=== PATIENT | female | born 1965 | race Caucasian/White ===

== ENCOUNTER 2023-01-09 12:11 | Outpatient (CLI) | payer BC, SELFPAY ==
--- NOTE | 2023-01-09 11:30 | DI.RAD_ITS ---
Exam(s) XR CHEST 2V PA LATERAL EXAM: XR CHEST 2V PA LATERAL CLINICAL HISTORY: HUMARIA, J06.09, evaluate pathology TECHNIQUE: 2D digital imaging was performed of the chest. Two images were obtained. PA and lateral views were obtained. COMPARISON: No exams were available for comparison FINDINGS: MEDIASTINUM: Normal. HEART: Normal. PULMONARY VASCULATURE: Normal. LUNGS: Clear. PLEURAL SPACE: No pleural effusion or pneumothorax. BONE:Within normal limits for the patient's age. OTHER FINDINGS:Normal. IMPRESSION: No acute pulmonary findings. DATA REPOSITORY: RADIATION DOSE DELIVERED:
== END 2023-01-09 12:31 ==
LOC: DI 12:14
PROVIDERS: PCP Physician Assistant Medical; Visit Provider Nurse Practitioner Family
DX: J06.9 Acute upper respiratory infection, unspecified (principal)
CPT/HCPCS: 71046

== ENCOUNTER 2023-01-09 12:17 | Outpatient (CLI) | payer BC, SELFPAY ==
[2023-01-09 12:17] LABS: Abs Immature Grans 0.02 10^3/uL (0.0-0.06); Absolute Basophil Count 0.03 10^3/uL (0.0-0.2); Absolute Lymphocyte Count 2.29 10^3/uL (1.2-3.4); Absolute Monocyte Count 0.59 10^3/uL (0.1-0.8); Absolute Neutrophil Count 2.22 10^3/uL (1.2-6.7); Basophils % 0.5; Eosinophils % 7.2; HCT 41.7 % (36.0-46.0); HGB 13.5 g/dL (11.2-15.7); Immature Grans % 0.4; Lymphocytes % 41.3; MCH 27.7 pg (27.0-33.0); MCHC 32.4 % (32.0-36.0); MCV 86 fL (80-95); MPV 9.4 fL (8.0-11.0); Monocytes % 10.6; Platelet Count 242 10^3/uL (130-400); RBC 4.88 10^6/uL (3.93-5.22); RDW 12.8 % (11.7-14.6); RDW-SD 40.3 fL; WBC 5.55 10^3/uL (4.4-10.8)
[2023-01-09 13:01] LABS: D-Dimer 722 ng/mlFEU (<500)
== END 2023-01-09 12:18 | disposition home or self-care (01) ==
LOC: LBO 12:18
PROVIDERS: PCP Physician Assistant Medical; Visit Provider Nurse Practitioner Family
DX: J06.9 Acute upper respiratory infection, unspecified (principal); R05.8 Other specified cough; R06.02 Shortness of breath; Z86.16 Personal history of COVID-19
CPT/HCPCS: 36415; 85025; 85379

== ENCOUNTER 2023-01-09 16:20 | Emergency (ER) | payer BC, SELFPAY ==
[2023-01-09 16:29] VITALS: BP 142/82; PULSE 80; RESP 17; TEMP 36.4; O2SAT 100
--- NOTE | 2023-01-09 16:45 | DI.CT_ITS ---
Exam(s) CT CHEST PE CTA EXAM: CT CHEST PE CTA CLINICAL HISTORY: F5 leiden, elevated dimer,cough, sob, r/o clot. TECHNIQUE: Imaging Protocol: Axial CT angiography was performed with multi-slice acquisition and mu lti-planar and/or 3D reconstructions. CONTRAST MATERIAL: Intravenous: Omnipaque 350 contrast volume:3 mL COMPARISON: No exams were available for comparison FINDINGS: Tracheobronchial tree: Patent where visualized. Pulmonary parenchyma: No consolidation or dominant measurable mass. No architectural distortion. Pulmonary Arteries: No evidence of filling defect to suggest pulmonary emboli. Mediastinum and Fauzia: No dominant adenopathy or fluid collection. The esophagus is unremarkable. Visualized thyroid gland: Unremarkable. Pleura: No effusion or pneumothorax. Heart: The heart is not dilated. No coronary artery calcifications are seen. No pericardial effusion. Aorta: Thoracic aorta non-dilated. No definite evidence of a dissection. Upper abdomen: Unremarkable. Soft tissues: Unremarkable. Bones: Within normal limits for the patient's age. IMPRESSION: No evidence of pulmonary embolism, thoracic aortic dissection or aneurysm. RADIATION DOSE DELIVERED: 489.56mGy.cm Total DLP DATA REPOSITORY: All CT scans at this facility are submitted to the National Radiology Data Registry (NRDR) Dose Index Registry (DIR) with the [employer] (ACR). RADIATION OPTIMIZATION: All CT scans at this facility use at least one of these dose optimization te chniques: automated exposure control; mA and/or kV adjustment per patient size (includes targeted exa ms where dose is matched to clinical indication); or iterative reconstruction.
--- NOTE | 2023-01-09 16:45 | RT.EKG_ITS ---
APPROVED REPORT Exam: Resting ECG Reason for Exam: chest pain Patient Location: E HR:71 bpm ECG Measurements Heart Rate 71 AXIS AZ 171 P 30 QRSd 91 QRS -28 QT 414 T 32 QTc 451 Conclusion Sinus rhythm...normal P axis, V-rate 60- 99 Physician: no stemi, no prior for comparison. inverted t wave in V1, minimal less than 1mm elevation in V2, inverted T in III
[2023-01-09 17:06] LABS: Abs Immature Grans 0.01 10^3/uL (0.0-0.06); Absolute Basophil Count 0.05 10^3/uL (0.0-0.2); Absolute Eosinophil Count 0.37 10^3/uL (0.0-0.7); Absolute Lymphocyte Count 2.47 10^3/uL (1.2-3.4); Absolute Monocyte Count 0.67 10^3/uL (0.1-0.8); Absolute Neutrophil Count 2.77 10^3/uL (1.2-6.7); Basophils % 0.8; Eosinophils % 5.8; HCT 40.1 % (36.0-46.0); HGB 12.9 g/dL (11.2-15.7); Immature Grans % 0.2; MCH 27.7 pg (27.0-33.0); MCHC 32.2 % (32.0-36.0); MCV 86 fL (80-95); MPV 9.5 fL (8.0-11.0); Monocytes % 10.6; Neutrophils % 43.6; Platelet Count 238 10^3/uL (130-400); RBC 4.66 10^6/uL (3.93-5.22); RDW 12.9 % (11.7-14.6); WBC 6.34 10^3/uL (4.4-10.8)
--- NOTE | 2023-01-09 17:14 | ED.GENADUL_ITS ---
Discharge Plan Disposition Patient Disposition: Home Condition: Good Discharge Details Clinical Impression: Cough, Encounter for medical assessment Primary Care Provider: Nellie Bee ED Provider: Delta Ingram Home Meds and New Rx's Prescriptions: New budesonide-formoterol [Symbicort] 160-4.5 mcg/actuation HFA aerosol inhaler 2 puff inhalation BID Qty: 10.2 0RF Continued albuterol sulfate 90 mcg/actuation HFA aerosol inhaler 2 puff inhalation Q6H PRN (Reason: shortness of breath or wheezing) Qty: 6.7 0RF (DME) Aerochamber MV Spacer See Rx Instructions .Route Qty: 1 0RF Rx Instructions: As directed benzonatate 100 mg capsule 100 mg PO TID PRN (Reason: cough) 7 Days Qty: 20 0RF levothyroxine [Synthroid] 137 MCG tablet 137 mcg PO DAILY aspirin 325 MG tablet 650 mg PO BID Discharge Instructions Instructions: Acute Cough (ED) Additional Instructions: At this time thankfully your blood work is normal, your troponin, CT scan, and laboratory work-up shows no signs of significant abnormality, blood clot, or pneumonia. I suspect your persistent cough is secondary to a post-COVID component. Please take the albuterol inhaler, 2 puffs every 6 hours as needed for the next 2 to 3 days. Continue to take the Tessalon Perles as needed. If you notice no improvement with your symptoms over the next 48 to 72 hours please switch from using the albuterol, to the Symbicort inhaler that I prescribed and sent to your pharmacy. Use this and take 2 puffs every 12 hours. If you notice any worsening of your symptoms, or any new symptoms such as vomiting, diarrhea, fever, chills, shortness of breath, chest pain, numbness, weakness, or fainting , please return immediately to the emergency department for reeva luation. Please follow up with your primary care provider as soon as possible for reassessment and reevaluation. As always, it was a pleasure participating in your medical care today. Referrals: Nellie Bee [Primary Care Provider] - Medical Decision Making 57-year-old female with a past medical history of factor V Leiden deficiency, who presents today for evaluation of mild shortness of breath and cough and congestion. Patient states that in late November which was about a month ago she and her significant other came down with COVID. They have recovered from that without significant issue, however over the last 2 to 3 days they have had mild symptoms of cough, congestion, and mild shortness of breath. She admits to pain with coughing, and a minimal amount of pain in her chest when she takes deep breath. She denies any exertional chest pain. She denies any history of personal blood clots but her brother who has factor V Leiden deficiency does have a history of blood clots. She does not smoke. She denies any estrogen use. She denies any recent long trips surgeries or procedures. For the last few days she has been taking 4 baby aspirin daily. No other complaints at this time. No hemoptysis, vomiting, dizziness, numbness, tingling, or weakness. No pain in her calves. Physical exam demonstrates a well-appearing female, no tachycardia, fever, or other abnormalities. Lungs are clear. Patient was at the urgent care earlier today, COVID and flu was negative, she did have a dimer that was performed and this was noted to be positive at 700. She was sent here for further assessment. We will get a CTA, evaluate for cardiac etiology, monitor closely and reassess. EKG does show minimal less than a millimeter elevation in V1 V2, does not meet STEMI criteria and. No significant depression. We will get a proBNP to evaluate for signs of heart strain. 6:45 PM Laboratory work-up has returned, no white count bandemia or left shift, electrolytes stable, renal function appropriate, troponin normal, proBNP normal showing no signs of heart strain. CT is negative for acute process per virtual radiology, including no evidence of pulmonary embolism. At this time patient remains well. No signs of vital sign abnormality, no signs of respiratory distress. No evidence of pneumonia or lungs. I suspect the cough may be secondary to a post COVID component. She does have an albuterol inhaler, recommend continued use of this as well as her Tessalon Perles. Patient otherwise stable for discharge. Symptoms inconsistent with ACS, massive PE, dissection, or pneumonia. Discussed red flags for which to return. Patient stable for discharge. I have extensively reviewed the treatment plan and discharge instructions with the patient and their family. I have addressed all patient concerns at this time. The patient and family was made aware of what symptoms to monitor for that would warrant a return to the emergency department. Discussed the plan with the patient and family, they demonstrate verbal understanding and agreement with our assessment and plan at this time. The documentation in this chart was dictated using Section 101 dictation software. Please excuse any dictation errors. FINDINGS: Pulmonary arteries: No pulmonary emboli. Aorta: No aortic aneurysm. No aortic dissection. Lungs: Scattered microatelectasis. No airspace consolidation. Pleural spaces: No pneumothorax. No pleural effusion. Heart: No cardiomegaly. No pericardial effusion. Lymph nodes: No enlarged lymph nodes. Bones/joints: No acute fracture. Soft tissues: No suspicious lesions. IMPRESSION: No pulmonary emboli are seen. Thank you for allowing us to participate in the care of your patient. Dictated and Authenticated by: Paulette Strong MD 01/09/2023 6:37 PM Eastern Time ([place] & [place]) HPI General Date/Time Provider Initiated Documentation: 01/09/23 16:47 . HPI Narrative: 57-year-old female with a past medical history of factor V Leiden deficiency, who presents today for evaluation of mild shortness of breath and cough and congestion. Patient states that in late November which was about a month ago she and her significant other came down with COVID. They have recove red from that without significant issue, however over the last 2 to 3 days they have had mild symptoms of cough, congestion, and mild shortness of breath. She admits to pain with coughing, and a minimal amount of pain in her chest when she takes deep breath. She denies any exertional chest pain. She denies any history of personal blood clots but her brother who has factor V Leiden deficiency does have a history of blood clots. She does not smoke. She denies any estrogen use. She denies any recent long trips surgeries or procedures. For the last few days she has been taking 4 baby aspirin daily. No other complaints at this time. No hemoptysis, vomiting, dizziness, numbness, tingling, or weakness. No pain in her calves. Related Data Home Medications Medication Instructions Recorded Confirmed aspirin 325 mg tablet 650 mg PO BID 02/21/18 01/09/23 levothyroxine 137 mcg tablet 137 mcg PO DAILY 02/21/18 01/09/23 (Synthroid) albuterol sulfate 90 mcg/actuation 2 puff inhalation Q6H PRN 01/09/23 01/09/23 aerosol inhaler shortness of breath or wheezing #6.7 grams benzonatate 100 mg capsule 100 mg PO TID PRN cough 7 days #20 01/09/23 01/09/23 caps budesonide-formoterol HFA 160 2 puff inhalation BID #10.2 grams 01/09/23 mcg-4.5 mcg/actuation aerosol inhaler (Symbicort) inhalational spacing device #1 ea 01/09/23 01/09/23 (Aerochamber MV spacer) Previous Rx's Medication Instructions Recorded albuterol sulfate 90 mcg/actuation 2 puff inhalation Q6H PRN 01/09/23 aerosol inhaler shortness of breath or wheezing #6.7 grams benzonatate 100 mg capsule 100 mg PO TID PRN cough 7 days #20 01/09/23 caps budesonide-formoterol HFA 160 2 puff inhalation BID #10.2 grams 01/09/23 mcg-4.5 mcg/actuation aerosol inhaler (Symbicort) inhalational spacing device #1 ea 01/09/23 (Aerochamber MV spacer) Allergies Allergy/AdvReac Type Severity Reaction Status Date / Time morphine Allergy Unknown Unverified 01/09/23 16:34 General Stated Complaint: Recheck PRINCE: 4 Review of Systems All systems reviewed & are unremarkable except as noted in HPI and below PFSH All Active Problems (Updated 01/09/23 @ 18:48 by Delta Ingram DO) Cough (Acute) Encounter for medical assessment (Acute) Lumbar radicular pain (Chronic) Medical History Afib Factor 5 Leiden mutation, heterozygous Fatigue GERD (gastroesophageal reflux disease) Protein S deficiency Sciatica Surgical History Replacement of total knee joint bilat Family History Mother Factor 5 Leiden mutation, heterozygous Father Myeloid dysplasia Social History Smoking/Tobacco Use Status: Never Smoking risk assessment performed?: Yes Alcohol Intake: current Alcohol Intake frequency: holidays/special occasions only Drug use: Occasionally Substance use type: does not use Do you feel safe at home: Yes Do you feel safe in your relationship?: Yes Exam Narrative Exam Narrative: 1.Const: Well-nourished, Well-developed, appearing stated age 2.Eyes: PERRL, no conjunctival injection, and symmetrical lids. 3.ENT: Atraumatic external nose and ears. Moist MM. Neck: Symmetric, trachea midline, No thyromegaly. 4.CVS: +S1/S2, No murmurs or gallops. Peripheral pulses 2+ and equal in all extremities. Brisk capillary refill in all extremities. 5.RESP: Unlabored respiratory effort. Clear to auscultation bilaterally. No wheezes rales or rhonchi 6.GI: Soft, Nontender/Nondistended, No hepatosplenomegaly. No guarding or rebound. 7.MSK: Normocephalic/Atraumatic, Extremities w/o deformity or ttp No cyanosis or clubbing, Normal movement of all extremities, calf tenderness. 8.Skin: Warm, Dry. No rashes or lesions. 9.Neuro: health information clerk II-XII grossly intact. Sensation grossly intact, no focal neuro logic deficits. 10.Psych: (AAO) x3. Appropriate mood and affect Course Vital Signs Vital signs: Vital Signs Temperature 36.4 C 01/09/23 16:29 Pulse 80 01/09/23 16:29 Respiratory Rate 17 01/09/23 16:29 Blood Pressure 142/82 H 01/09/23 16:29 Pulse Oximetry 100 01/09/23 16:29 Temperature 36.4 C 01/09/23 16:29 Temperature Source Tympanic 01/09/23 16:29 Pulse 80 01/09/23 16:29 Respiratory Rate 17 01/09/23 16:29 Respiratory Effort Non-Labored, Short of Breath 01/09/23 16:32 Blood Pressure 142/82 H 01/09/23 16:29 Blood Pressure Position Sitting 01/09/23 16:29 Pulse Oximetry 100 01/09/23 16:29 Oxygen Delivery Method Room Air 01/09/23 16:29 Oxygen Flow Rate 0 01/09/23 16:29 Pain Level 0 01/09/23 16:29 Lab/Test Results Lab/Test Results: Laboratory Tests Range/Units 01/09/23 17:00 WBC (4.4-10.8) 10^3/uL 6.34 RBC (3.93-5.22) 10^6/uL 4.66 Hgb (11.2-15.7) g/dL 12.9 Hct (36.0-46.0) % 40.1 MCV (80-95) fL 86 MCH (27.0-33.0) pg 27.7 MCHC (32.0-36.0) % 32.2 RDW (11.7-14.6) % 12.9 Plt Count (130-400) 10^3/uL 238 MPV (8.0-11.0) fL 9.5 Immature Gran % 0.2 Neutrophils % 43.6 Lymphocytes % 39.0 Monocytes % 10.6 Eosinophils % 5.8 Basophils % 0.8 Nucleated RBC % (0.0-0.3) % 0.0 Absolute Neutrophils (1.2-6.7) 10^3/uL 2.77 Absolute Lymphocytes (1.2-3.4) 10^3/uL 2.47 Absolute Monocytes (0.1-0.8) 10^3/uL 0.67 Absolute Eosinophils (0.0-0.7) 10^3/uL 0.37 Absolute Basophils (0.0-0.2) 10^3/uL 0.05
[2023-01-09 17:19] LABS: INR 0.9 (0.9-1.1); PTT Activated 23.7 sec (21.5-31.9); Prothrombin Time 9.3 sec (9.3-11.0)
[2023-01-09 17:23] LABS: ALT 75 U/L (14-59); AST 38 U/L (15-37); Albumin 3.9 g/dL (3.4-5.0); Alkaline Phosphatase 80 U/L (46-116); Anion Gap 5.5 mmol/L (3-11); BUN 13 mg/dL (7-18); Bilirubin, Total 0.2 mg/dL (0.2-1.0); CO2 31.5 mmol/L (21.0-32.0); CREATININE 1.1 mg/dL (0.55-1.02); Calcium 8.8 mg/dL (8.5-10.1); Chloride 106 mmol/L (98-107); Estimated GFR 58.24 (mL/min/1.73m2); Glucose 88 mg/dL (74-106); Potassium 3.8 mmol/L (3.5-5.1); Sodium 143 mmol/L (136-145); Total Protein 7.1 g/dL (6.4-8.2)
[2023-01-09] MEDS: Benzonatate 100 MG CAP 200 MG PO (17:28)
[2023-01-09 17:31] LABS: NT-proBNP 71 pg/mL (<300); Troponin I < 50 ng/L (<or=60)
[2023-01-09] MEDS: Normal Saline - Diluent 50 ML VIAL IJ (18:01)
[2023-01-09] MEDS: Normal Saline Flush 10 ML SYR IVP (18:01)
[2023-01-09] MEDS: Omnipaque 350 MG/ML 100 ML BTL IJ (18:02)
--- NOTE | 2023-01-09 18:37 | DI.VRAD_ITS ---
PROCEDURE INFORMATION: Exam: CTA Chest With Contrast Exam date and time: 01/09/2023 18:12 Age: 57 years old Clinical indication: Other: F5 leiden, elevated dimer, cough, SOB, R/O clot TECHNIQUE: Imaging protocol: Computed tomographic angiography of the chest with contrast. 3D rendering (Not supervised by radiologist): MIP and/or 3D reconstructed images were created by the technologist. Radiation optimization: All CT scans at this facility use at least one of these dose optimization techniques: automated exposure control; mA and/or kV adjustment per patient size (includes targeted exams where dose is matched to clinical indication); or iterative reconstruction. Contrast material: OMNIPAQUE 350; Contrast volume: 83 ml; Contrast route: IV; COMPARISON: CR XR CHEST 2V PA LATERAL 01/09/2023 11:55 FINDINGS: Pulmonary arteries: No pulmonary emboli. Aorta: No aortic aneurysm. No aortic dissection. Lungs: Scattered microatelectasis. No airspace consolidation. Pleural spaces: No pneumothorax. No pleural effusion. Heart: No cardiomegaly. No pericardial effusion. Lymph nodes: No enlarged lymph nodes. Bones/joints: No acute fracture. Soft tissues: No suspicious lesions. IMPRESSION: No pulmonary emboli are seen. Dictated and Authenticated by: Paulette Strong MD. Ordering:KATIA Sorenson MD
[2023-01-09 19:10] VITALS: BP 136/61; PULSE 79; RESP 16; TEMP 36.4; O2SAT 100
== END 2023-01-09 19:08 | disposition home or self-care (01) ==
PROVIDERS: Emergency Provider Student in an Organized Health Care Education/Training Program; PCP Physician Assistant Medical
DX: Z00.01 Encounter for general adult medical examination with abnormal findings (principal); R05.9 Cough, unspecified; R06.02 Shortness of breath; R09.81 Nasal congestion; Z79.4 Long term (current) use of insulin
CPT/HCPCS: 36415; 71275; 80053; 93005; 99285; 83880; 84484; 85025; 85610; 85730; 93010; J3490

== ENCOUNTER → 2023-07-17 00:58 | Outpatient (CLI) | payer BC, SELFPAY ==
--- NOTE | 2023-07-17 08:10 | DI.MAMMO_ITS ---
Exam(s) MAMMO SCREENING EXAM: MAMMO SCREENING CLINICAL HISTORY: SCREENING, Z12.39 TECHNIQUE: Bilateral full field digital CC and MLO mammographic images were obtained with 3D tomosyn thesis and utilizing computer aided detection (CAD). COMPARISON: Available for comparison. FINDINGS: Masses/Architectural Distortion: There is a new 3 mm nodule in the outer right breast 7 cm from the n ipple on the CC view. There are no areas of architectural distortion. Microcalcifications: No suspicious pleomorphic-type are seen. Skin Thickening/Nipple Retraction: None. IMPRESSION: 1. New 3 mm nodule in the outer right breast. 2. Spot compression views recommended for further evaluation. Limited right breast ultrasound may be indicated at that time. BI-RADS Category 0 - Assessment Incomplete: Need additional imaging evaluation Breast Density - Category B - Scattered areas of fibroglandular density Breast density category C or D implies that the patient has dense breast tissue. Dense breast tissue is very common and is not abnormal but dense breast tissue can make it harder to find cancer on a ma mmogram. Also, dense breast tissue may increase their breast cancer risk. This information about the result of the mammogram report was provided to the patient to raise their awareness. Use this report when you speak with the patient about their risks for breast cancer, which includes their family hist ory. At that time, you may recommend for more screening tests (Ultrasound or MRI) as they might be us eful based on their risk. A negative radiographic report should not delay biopsy if a dominant or clinically suspicious mass is present. Up to ten percent of cancers are not identified on mammography. A negative report may reinforce clinical impression. Adenosis and dense breasts may obscure an underlying neoplasm. False positive reports average 6 to 10%. Patient will receive a letter notifying them of these results.
== END ==
PROVIDERS: PCP Physician Assistant Medical; Visit Provider Physician Assistant Medical
DX: Z12.31 Encounter for screening mammogram for malignant neoplasm of breast (principal)
CPT/HCPCS: 77063; 77067

== ENCOUNTER → 2023-08-22 01:58 | Outpatient (CLI) | payer BC, SELFPAY ==
--- NOTE | 2023-08-22 | DI.US_ITS ---
Exam(s) MG MAMMO SCREEN CALL BACK UNI US BREAST RT COMPLETE EXAM: MG MAMMO SCREEN CALL BACK UNI-RIGHT AND COMPLETE RIGHT BREAST ULTRASOUND CLINICAL HISTORY: F/U MAMMO, NEW 3 MM RT NODULE,R92.8. TECHNIQUE: Unilateral spot mammographic images obtained with 3D tomosynthesisand utilizing computer aided detection (CAD). . Complete right breast Ultrasound was also performed, including all 4 quadrants, the retroareolar joo on, and the ipsilateral axilla. COMPARISON: Prior mammograms were reviewed. This additional imaging was performed due to findings described on the recent screening mammogram of 07/17/2023. FINDINGS: DIAGNOSTIC MAMMOGRAM: Additional mammographic views performed todaydoes not dissipate this small nodule. We proceeded with ultrasound. COMPLETE RIGHT BREAST ULTRASOUND: Ultrasound performed today reveals no evidence of solid or significant cystic lesions in all 4 quadra nts.. Scanning of the ipsilateral axilla reveals no significant adenopathy. IMPRESSION: 1. No ultrasound finding to correspond to the tiny new nodule on the mammogram. I suspected that it may be a small benign intramammary lymph node or possibly a tiny cyst which was not adequately visua lized on today's ultrasound examination. Appropriate follow-up as discussed by myself with the patient today is repeat right breast mammogram in 6 months. The patient was informed of these findings and recommendations by myself prior to leaving the departm ent today. BI-RADS Category 3 - 6 month - Probably Benign Finding: Recommend follow-up mammography in 6 months Breast Density - Category B - Scattered areas of fibroglandular density Breast density Category C or D implies that the patient has dense breast tissue. Dense breast tissue can make it harder to find cancer on a mammogram. Dense breast tissue is also associated with an incr eased risk of breast cancer. This information about the result of the mammogram report was provided to the patient to raise their awareness. Use this report when you speak with the patient about their risks for breast cancer, which includes their family history. At that time, you may recommend additional screening tests (Ultrasoun d or MRI) as these tests may add significant information. A negative radiographic report should not delay biopsy if a dominant or clinically suspicious mass is present. Up to ten percent of cancers are not identified on mammography. A negative report may reinforce clinical impression. Adenosis and dense breasts may obscure an underlying neoplasm. False positive reports average 6 to 10%. Patient will receive a letter notifying them of these results.
== END ==
PROVIDERS: PCP Physician Assistant Medical; Visit Provider Physician Assistant Medical
DX: Z12.31 Encounter for screening mammogram for malignant neoplasm of breast (principal); R92.8 Other abnormal and inconclusive findings on diagnostic imaging of breast
CPT/HCPCS: 76642; 77063; 77067

== ENCOUNTER → 2024-03-20 01:49 | Outpatient (CLI) | payer BC, SELFPAY ==
--- NOTE | 2024-03-20 14:30 | DI.MAMMO_ITS ---
Exam(s) MAMMO DIAGNOSTIC UNI EXAM: MAMMO DIAGNOSTIC UNI RIGHT CLINICAL HISTORY: INCONCLUSIVE MAMMO R92.2 RIGHT 6 MO FU. TECHNIQUE: Unilateral RIGHT BREAST CC and MLO mammographic images were obtained with 3D tomosynthesi s technique and utilizing computer aided detection (CAD). COMPARISON: Prior mammograms were reviewed, the most recent being August 2023.. Ultrasound of that time was also reviewed. FINDINGS: There has been no significant change appearance and distribution of the fibroglandular tissue of the right breast. The previously described small benign-appearing nodular density towards the upper outer quadrant is u nchanged. There are no new focal findings. No malignant-appearing microcalcification groups. No significant architectural distortion or skin th ickening-traction. IMPRESSION: Stable benign-appearing right breast finding. Appropriate follow-up is to keep this patient on her yearly mammogram schedule, this implying that he r next bilateral mammogram would be in 6 months, with earlier imaging if a self detected breast cotton e is noted.. The patient was informed of the findings and follow-up recommendations by myself prior to leaving the department today. BI-RADS Category 3 - 6 month - Probably Benign Finding: Recommend follow-up mammography in 6 months Breast Density - Category B - Scattered areas of fibroglandular density Breast density Category C or D implies that the patient has dense breast tissue. Dense breast tissue can make it harder to find cancer on a mammogram. Dense breast tissue is also associated with an incr eased risk of breast cancer. This information about the result of the mammogram report was provided to the patient to raise their awareness. Use this report when you speak with the patient about their risks for breast cancer, which includes their family history. At that time, you may recommend additional screening tests (Ultrasoun d or MRI) as these tests may add significant information. A negative radiographic report should not delay biopsy if a dominant or clinically suspicious mass is present. Up to ten percent of cancers are not identified on mammography. A negative report may reinforce clinical impression. Adenosis and dense breasts may obscure an underlying neoplasm. False positive reports average 6 to 10%. Patient will receive a letter notifying them of these results.
== END ==
PROVIDERS: PCP Physician Assistant Medical; Visit Provider Physician Assistant Medical
DX: Z12.31 Encounter for screening mammogram for malignant neoplasm of breast (principal); R92.8 Other abnormal and inconclusive findings on diagnostic imaging of breast
CPT/HCPCS: 77061; 77065; G0279